=== PATIENT | female | born 1950 | race Caucasian/White ===

== ENCOUNTER 2021-07-16 22:43 | Emergency (ER) | payer SELFPAY ==
[~2021-07-16] VITALS: Ht 165.1 cm; Wt 83.5 kg
[2021-07-16] MEDS ORDERED: ONDANSETRON 4 MG/2 ML VIAL IV ONE (23:00)
[2021-07-16] MEDS ORDERED: HYDROMORPHONE 1 MG/1 ML DISP.SYRIN IV ONE (23:00)
--- NOTE | 2021-07-16 23:10 | NUR ---
Dr Pool at bedside for MSE.
[2021-07-16 23:37] LABS: HEMATOCRIT 44.2 % (31.2-41.9); MEAN CORPUSCULAR HEMOGLOBIN 28.9 uug (24.7-32.8); MEAN CORPUSCULAR VOLUME 87.1 fL (75.5-95.3); PLATELET COUNT (AUTO) 276 K/uL (179-408)
[2021-07-16 23:41] LABS: POTASSIUM 4.4 mmol/L (3.5-5.1)
[2021-07-16] MEDS ORDERED: ONDANSETRON 4 MG/2 ML VIAL ONE (23:43)
[2021-07-16] MEDS ORDERED: HYDROMORPHONE 1 MG/1 ML DISP.SYRIN ONE (23:43)
[2021-07-16 23:47] LABS: BILIRUBIN,DIRECT 0.1 mg/dL (0.0-0.2); BILIRUBIN,TOTAL 0.3 mg/dL (0.2-1.0); TOTAL PROTEIN, SERUM 8.4 g/dL (6.4-8.2)
[2021-07-17] MEDS ORDERED: KETOROLAC TROMETHAMINE 15 MG INJ IVP ONE
[2021-07-17] MEDS ORDERED: OXYC-128 PO (00:05)
[2021-07-17] MEDS ORDERED: KETOROLAC TROMETHAMINE 15 MG INJ ONE (00:09)
--- NOTE | 2021-07-17 00:54 | NUR ---
Patient discharged to home in stable condition. Written and verbal after care instructions given. Patient verbalizes understanding of instructions. Stressed follow up or return to ER for worsening s/s. pt taken to vehicle via wheelchair. assissted into vehicle. picked up by son. no sob. no chest pain. afebrile.
[2021-07-17 02:02] VITALS: BP 151/98
== END 2021-07-17 02:04 | disposition home or self-care (01) ==
LOC: ER 22:52
DX: R10.9 Unspecified abdominal pain (principal); S20.211A Contusion of right front wall of thorax, initial encounter; Y01.XXXA Assault by pushing from high place, initial encounter; Y92.019 Unspecified place in single-family (private) house as the place of occurrence of the external cause; S70.12XA Contusion of left thigh, initial encounter; R00.0 Tachycardia, unspecified; D72.829 Elevated white blood cell count, unspecified; R94.31 Abnormal electrocardiogram [ECG] [EKG]
CPT/HCPCS: 36415; 71101; 72170; 73502; 80048; 80076; 85025; 93005; 96374; 96375 ×2; 99285; J1170; J1885; J2405